=== PATIENT | male | born 1975 | race Caucasian/White ===

== ENCOUNTER 2016-10-26 20:10 | Emergency (ER) | payer SELFPAY ==
[2016-10-26] MEDS ORDERED: KETOROLAC TROMETHAMINE 30 MG/ML SOL IV ONE (20:17)
[2016-10-26] MEDS ORDERED: SODIUM CHLORIDE 0.9% 1000ML 1,000 ML IV ONE ×2 (20:20→21:51)
[2016-10-26] MEDS ORDERED: KETOROLAC TROMETHAMINE 30 MG/ML SOL ONE (20:30)
[2016-10-26 20:33] LABS: BASOPHILS % (AUTO) 1 % (0-3); EOSINOPHILS % (AUTO) 4 % (0-9); HEMATOCRIT 44 % (39-53); MEAN CORPUSCULAR HGB CONC 35.9 gm/dl (32.0-36.0); MEAN CORPUSCULAR VOLUME 85 fL (80-100); MONOCYTES % (AUTO) 7.1 % (0-12)
[2016-10-26 20:57] LABS: APPEARANCE,URINE Slightly Cloudy; BILIRUBIN,URINE 1+ (NEGATIVE); COLOR,URINE Dark yellow; GLUCOSE, URINE (UA) NEGATIVE (NEGATIVE); KETONES,URINE TRACE (NEGATIVE); LEUKOCYTE ESTERASE ,URINE NEGATIVE (NEGATIVE); NITRATE,URINE NEGATIVE (NEGATIVE); OCCULT BLOOD,URINE 3+ (NEG-TRACE); PH,URINE 5.5; UROBILINOGEN,URINE 0.2 (0.2-1.0 EU)
[2016-10-26 21:08] LABS: ICTOTEST,URINE NEGATIVE (NEGATIVE); RBC,URINE 40-45 (0-3AV/HPF); WBC,URINE 0-1 (0-5AV/HPF)
[2016-10-26] MEDS ORDERED: HYDROMORPHONE HCL 2 MG/ML 1 ML SOL IV ONE ×2 (21:09→23:06)
[2016-10-26] MEDS ORDERED: HYDROMORPHONE HCL 2 MG/ML 1 ML SOL ONE (21:10)
[2016-10-26] MEDS ORDERED: TAMSULOSIN HYDROCHLORIDE 0.4 MG CAP ONE (21:52)
[2016-10-26] MEDS ORDERED: TAMSULOSIN HYDROCHLORIDE 0.4 MG CAP PO SCH (22:00)
[2016-10-26] MEDS ORDERED: APAP/OXYCODONE 325/5 TAB ONE ×2 (22:35→23:21)
[2016-10-26] MEDS ORDERED: ONDANSETRON HCL 4 MG/2 ML SOL IV ONE (23:02)
[2016-10-26] MEDS ORDERED: ONDANSETRON HCL 4 MG/2 ML SOL ONE (23:03)
[2016-10-26] MEDS ORDERED: ONDANSETRON 4 MG ODT BU PRN (23:19)
[2016-10-26] MEDS ORDERED: APAP/OXYCODONE 325/5 TAB PO ONE (23:19)
[2016-10-26] MEDS ORDERED: ONDANSETRON 4 MG ODT ONE (23:21)
[2016-10-27 00:23] VITALS: BP 142/90; PULSE 72; RESP 16; TEMP 97.3; O2SAT 95
== END 2016-10-26 23:29 | disposition home or self-care (01) | DRG 694 ==
LOC: ED 20:10
DX: N20.1 Calculus of ureter (principal); Z87.442 Personal history of urinary calculi
CPT/HCPCS: 36415; 74176; 81001; 85025; 96365; 96366; 96374; 96375; 99284; 99285; J1170; J1885; J2405

== ENCOUNTER 2017-11-23 23:31 | Emergency (ER) | payer SELFPAY ==
[2017-11-23] MEDS ORDERED: ASPIRIN 81 MG CHEWABLE CTB PO STA (23:33)
[2017-11-23] MEDS ORDERED: SODIUM CHLORIDE 0.9% FLUSH 10 ML SOL IV PRN (23:33)
[2017-11-23] MEDS ORDERED: ASPIRIN 81 MG CHEWABLE CTB ONE (23:35)
[2017-11-23] MEDS ORDERED: NITROGLYCERIN 0.4 MG TAB SL ONE (23:35)
[2017-11-23] MEDS: NITROGLYCERIN 0.4 MG TAB SL PRN ×2 (23:45→23:50)
[2017-11-23 23:47] VITALS: TEMP 98
[2017-11-23 23:49] LABS: BASOPHILS % (AUTO) 1 % (0-3); EOSINOPHILS % (AUTO) 2 % (0-9); HEMATOCRIT 46 % (39-53); MEAN CORPUSCULAR HGB CONC 34.6 gm/dl (32.0-36.0); MEAN CORPUSCULAR VOLUME 90 fL (80-100); MONOCYTES % (AUTO) 7.2 % (0-12); NEUTROPHILS % (AUTO) 70.1 % (37-80)
[2017-11-23] MEDS ORDERED: ONDANSETRON HCL 4 MG/2 ML SOL ONE (23:59)
[2017-11-24] MEDS ORDERED: ONDANSETRON HCL 4 MG/2 ML SOL IV ONE
[2017-11-24] MEDS ORDERED: MORPHINE SULFATE 10 MG/ML SOL ONE
[2017-11-24] MEDS ORDERED: MORPHINE SULFATE 10 MG/ML SOL IV ONE (00:03)
[2017-11-24 00:04] LABS: CALCIUM 9.5 mg/dl (8.5-10.1); POTASSIUM 3.9 mMol/L (3.5-5.1)
[2017-11-24] MEDS ORDERED: NITROGLYCERIN 5 MG/ML 50 MG in DEXTROSE 250 ML 250 ML IV PRN (00:24)
[2017-11-24] MEDS ORDERED: TICAGRELOR 90 MG TAB PO ONE ×2 (00:26→00:32)
[2017-11-24] MEDS ORDERED: HEPARIN SODIUM 5000 U/ML SOL IV ONE (00:26)
[2017-11-24] MEDS ORDERED: HEPARIN SODIUM 5000 U/ML SOL ONE (00:26)
[2017-11-24] MEDS ORDERED: LORAZEPAM 2 MG/ML SOL ONE (00:34)
[2017-11-24] MEDS ORDERED: LORAZEPAM 2 MG/ML 10ML MDV 2 MG/ML VIAL IV ONE (00:36)
[2017-11-24 00:58] VITALS: O2SAT 100
[2017-11-24 01:02] VITALS: BP 119/72; PULSE 90; RESP 20
== END 2017-11-24 00:49 | disposition short-term general hospital (02) | DRG 282 ==
LOC: ED 23:31
DX: I21.4 Non-ST elevation (NSTEMI) myocardial infarction (principal); E78.5 Hyperlipidemia, unspecified; I10 Essential (primary) hypertension; Z72.0 Tobacco use
CPT/HCPCS: 71045; 80048; 82550; 84484; 85025; 85610; 85730; 93005; 99291; J1644; J2060; J2270; J2405; A9270-GY

== ENCOUNTER 2017-11-30 23:21 | Emergency (ER) | payer SELFPAY ==
[2017-11-30] MEDS: SODIUM CHLORIDE 0.9% FLUSH 10 ML SOL IV PRN (23:25)
[2017-11-30] MEDS ORDERED: NITROGLYCERIN 0.4 MG TAB SL ONE (23:26)
[2017-11-30] MEDS ORDERED: NITROGLYCERIN 0.4 MG TAB SL PRN (23:34)
[2017-11-30 23:42] LABS: BASOPHILS % (AUTO) 1 % (0-3); EOSINOPHILS % (AUTO) 4 % (0-9); HEMATOCRIT 46 % (39-53); MEAN CORPUSCULAR HGB CONC 35.1 gm/dl (32.0-36.0); MEAN CORPUSCULAR VOLUME 90 fL (80-100); MONOCYTES % (AUTO) 7.3 % (0-12); NEUTROPHILS % (AUTO) 60.5 % (37-80)
[2017-11-30] MEDS ORDERED: SODIUM CHLORIDE 0.9% 1000ML 1,000 ML IV SCH (23:45)
[2017-11-30 23:53] LABS: POTASSIUM 3.8 mMol/L (3.5-5.1)
[2017-12-01 00:08] VITALS: TEMP 96.8
[2017-12-01] MEDS ORDERED: ENOXAPARIN 100 MG SOL SC ONE ×2 (00:18→00:19)
[2017-12-01 00:24] VITALS: O2SAT 98
[2017-12-01] MEDS: SODIUM CHLORIDE 0.9% FLUSH 10 ML SOL IV PRN (00:27)
[2017-12-01] MEDS ORDERED: ENOXAPARIN 100 MG SOL SC SCH (00:30)
[2017-12-01 00:38] LABS: CALCIUM 9.3 mg/dl (8.5-10.1)
[2017-12-01 00:51] LABS: ALBUMIN 3.8 gm/dl (3.4-5.0)
[2017-12-01 01:01] VITALS: BP 134/85; PULSE 71; RESP 17
== END 2017-12-01 00:55 | disposition short-term general hospital (02) | DRG 311 ==
LOC: ED 23:21
DX: I20.0 Unstable angina (principal); I25.2 Old myocardial infarction; Z87.891 Personal history of nicotine dependence; Z95.1 Presence of aortocoronary bypass graft
CPT/HCPCS: 36415; 71045; 80053; 84484; 85025; 85730; 93005; 99285; J1650; A9270-GY